=== PATIENT | female | born 1930 | race Caucasian/White ===

== ENCOUNTER 2017-02-15 08:30 | Emergency (ER) | payer MEDICARE, OTHER ==
[2017-02-15] MEDS ORDERED: NORMAL SALINE 1,000 ML IV ONE ×2 (09:08→11:48)
--- OUTSIDE RECORDS SUMMARY | 2017-02-15 09:15 | XMS REPORT | Continuity of Care Document ---
:1930 Author Organization [facility] ([facility]) Address [address] [place] [address] Phone [phone] Care Team Providers Name Role Phone Mandeep Lara Primary Care Provider [phone] Source Comments This disclosure is being made pursuant to the Care Everywhere program, applicable federal and state laws, and may not contain all informaitonavailable regarding this patient.[facility] ([facility]) Active Allergies and Adverse Reactions Allergen Noted Date Severity Reactions Comments Alprazolam 08/19/2015 Unknown Ciprofloxacin 06/28/2009 Urticaria (Hives) Irbesartan-Hydrochlorothiazide 07/18/2009 OTHER Cough Current Medications Prescription Sig. Disp. Refills Start Date End Date Status zolpiDEM (AMBIEN) 5 mg take 5 mg by Active tablet mouth at bedtime as needed for Sleep. amitriptyline (ELAVIL) take 75 mg by Active 75 mg tablet mouth every evening. MAGNESIUM HYDROXIDE, take by mouth. Active [id number], (MILK OF As needed MAGNESIA PO) CALCIUM Take 1 tablet by Active CARBONATE/VITAMIN D3 mouth daily. (CALCIUM 600 + D PO) Vitamin A-Vitamin C-Vit take 1 Tab by Active E-Min (OCUVITE) Tab mouth daily. multivitamin (MULTIPLE take 1 Tab by Active VITAMINS) tablet mouth every 48 hours. aspirin 81 mg EC tablet Take 81 mg by Active mouth 2 times daily. alendronate 70 mg Take 70 mg by Active tablet mouth every week. On Tuesdays FLUTICASONE 50 Use 1 [place] into 06/02/2015 Active mcg/Actuation nasal both nostrils spray daily as needed. LEVOTHYROXINE 100 mcg Take 100 mcg by 05/10/2015 Active tablet mouth daily. LOSARTAN-HYDROCHLOROTHI Take 1 tablet by 05/10/2015 Active AZIDE 100-25 mg per mouth daily. tablet METOPROLOL succinate 25 Take 25 mg by 05/10/2015 Active mg XL tablet mouth daily. SIMVASTATIN 40 mg Take 40 mg by 05/10/2015 Active tablet mouth every evening. acetaminophen 325 mg Take 2 tablets 90 tablet 0 10/05/2015 Active tablet (650 mg total) by mouth every 6 hours. Do not exceed 3000 mg daily lactulose 10 g/15 mL Take 15 mL (10 g 473 mL 1 10/12/2015 Active solution total) by mouth daily as needed. nitrofurantoin 06/14/2016 Active (MACROBID) 100 mg capsule Active Problems Problem Noted Date PONV (postoperative nausea and vomiting) 10/04/2015 Postoperative pain 10/04/2015 Overview: Monitor, treat with IV/PO pain meds prn Benign essential HTN 10/04/2015 Overview: Monitor, resume home meds as appropriate HLD (hyperlipidemia) 10/04/2015 Overview: Resume home meds as appropriate Hypothyroidism 10/04/2015 Overview: Resume home meds as appropriate Allergic rhinitis 10/04/2015 Overview: Resume home meds as appropriate Osteoporosis 10/04/2015 Overview: Resume home meds as appropriate Urinary retention 10/04/2015 Overview: Monitor, bladder scan q 6 hrs with CIC prn, replace omnteiro as appropriate Constipation 08/19/2015 Preop testing 08/19/2015 Macular hole of right eye 06/01/2013 Myopia 06/01/2013 Pseudophakia 06/05/2010 Retinal drusen 06/05/2010 Other screening mammogram 10/28/2002 Other constipation 10/28/2002 Insomnia, unspecified 12/16/2001 Chest pain, unspecified 12/16/2001 Migraine without aura, without mention of intractable migraine without 2000 mention of status migrainosus Unspecified tinnitus 06/17/2001 Resolved Problems Problem Noted Date Resolved Date Hypophosphatemia 10/06/2015 10/12/2015 Overview: Monitor, replete as appropriate Postoperative ileus 10/06/2015 10/12/2015 Overview: Monitor, NGT decompression prn, NPO Hypomagnesemia 10/05/2015 10/12/2015 Overview: Monitor, replete as appropriate Hyponatremia 10/05/2015 10/12/2015 Overview: Monitor, replete as appropriate Hypokalemia 10/05/2015 10/12/2015 Overview: Monitor, replete as appropriate Rectal prolapse 08/19/2015 10/12/2015 Overview: S/p Altemeier procedure 10/04/15 Immunizations Name Dates Previously Given Next Due Influenza, unspecified 07/08/2002,07/30/2000 Pneumococcal Polysaccharide, PPSV23 (Pneumovax 23) 02/08/2010 Pneumococcal, unspecified 11/25/1995 Td, adult unspecified 07/08/2002 Social History Tobacco Use Types Packs/Day Years Used Date Never Smoker Smokeless Tobacco: Never Used Tobacco Cessation:Counseling Given: Yes Comments: Alcohol Use Drinks/Week oz/Week Comments Yes 1 beer a day Last Filed Vital Signs Vital Sign Reading Time Taken Blood Pressure 113/67 10/19/2015 10:40 AM WORKFORCE MANAGEMENT COORDINATOR Pulse 93 10/19/2015 10:40 AM WORKFORCE MANAGEMENT COORDINATOR Temperature 36.9 C (98.4 F) 10/19/2015 10:40 AM WORKFORCE MANAGEMENT COORDINATOR Respiratory Rate 16 10/12/2015 9:28 AM WORKFORCE MANAGEMENT COORDINATOR Height 1.6 m (5' 2.99") 10/19/2015 10:40 AM WORKFORCE MANAGEMENT COORDINATOR Weight 64.05 kg (141 lb 3.3 oz) 10/19/2015 10:40 AM WORKFORCE MANAGEMENT COORDINATOR Body Mass Index 25.02 10/19/2015 10:40 AM WORKFORCE MANAGEMENT COORDINATOR Oxygen Saturation 93% 10/12/2015 8:00 AM WORKFORCE MANAGEMENT COORDINATOR Plan of Care Date Type Specialty Providers Description 06/24/2017 Appointment Ophthalmology - Chirag Hester, Chief Comp: Patient Specialty MD Reported Reason For [address] [place] [address] [phone] (Fax) Health Maintenance Due Date Last Done Comments Hepatitis B Vaccine (1 of 3 1930 - Primary Series) Tdap Vaccine 1941 Zoster Vaccine 1988 Lipid Disorder Screening 12/16/2006 12/16/2001, Additional history exists 11/24/1999, 12/06/1998 Pneumococcal Vaccine (2 of 2 02/08/2011 02/08/2010 - PCV13) Td Vaccine 07/08/2012 07/08/2002 Influenza Vaccine: Seasonal 04/16/2016 07/08/2002, (#1) 07/30/2000 Results from Last 3 Months Not on file
[2017-02-15 09:28] LABS: Hematocrit 34.9 % (37.0-47.0); Hemoglobin 11.8 gm/dL (12.5-16.0); Mean Cell Volume 86.6 fl (78-100); Mean Corpuscular Hemoglobin 29.3 pg (27-31); Mean Corpuscular Hgb Conc 33.8 g/dl (32-36); Mean Platelet Volume 8.6 fl (6.0-9.5); Neutrophil # 4.9 K/mm3 (1.3-6.0); Neutrophil % 85.4 % (42-75.0); Platelet Count 116 K/mm3 (150-450); Red Blood Count 4.03 M/mm3 (4.2-5.4); Red Cell Distribution Width 13.4 % (11.5-14.0); White Blood Count 5.7 K/mm3 (4.0-10.5)
[2017-02-15 09:43] LABS: Albumin * 3.6 gm/dl (3.4-5.0); Anion Gap 9.7 mmol/L (6.8-13.8); BUN/Creatinine Ratio 13.3 (9.0-21.6); Bilirubin, Total 1.1 mg/dL (0.0-1.1); Ca. Corrected For Albumin 9.2 mg/dL (8.4-10.2); Calcium * 9.2 mg/dL (7.9-10.9); Carbon Dioxide 29.1 mmol/L (24-32.6); Potassium 2.8 mmol/L (3.4-4.6); Total Protein 7.1 gm/dL (6.2-8.2)
[2017-02-15 10:06] LABS: Urine Bilirubin Negative (NEGATIVE); Urine Blood Negative /ul (NEGATIVE); Urine Ketone 5 mg/dL (NEGATIVE); Urine Nitrite Negative (NEGATIVE); Urine Protein Negative (NEGATIVE); Urine Specific Gravity <=1.005 SP.GR. (1.005-1.010); Urine Urobilinogen Normal (NORMAL)
[2017-02-15] MEDS ORDERED: POTASSIUM CHLORIDE 20 MEQ TABLET.SA PO ONE (10:07)
[2017-02-15] MEDS ORDERED: POTASSIUM CHLORIDE 100 ML IV ONE ×2 (10:07→10:08)
[2017-02-15 10:15] LABS: Urine Appearance Slightly Cloudy; Urine Bacteria 2+; Urine Color Yellow; Urine RBC None Seen /hpf (0-5)
[2017-02-15] MEDS ORDERED: POTASSIUM CHLORIDE 20 MEQ TABLET.SA ONE (10:25)
--- NOTE | 2017-02-15 13:17 | ERNOTE ---
Medical Problem HPI - General Chief Complaint: Nausea/Vomiting Time Seen by Provider: 02/15/17 09:01 Source: patient Exam Limitations: no limitations - Immun/Allergies/Home Medications Immunizations: IMMUNIZATION HX Immunizations Up to Date Yes History of Influenza Vaccine No Hx Pneumococcal Vaccination More Information Required Allergies/Adverse Reactions: Allergies alprazolam Allergy (Verified 02/15/17 08:53) ciprofloxacin [From Cipro] Allergy (Verified 02/15/17 08:53) ciprofloxacin HCl [From Cipro] Allergy (Verified 02/15/17 08:53) hydrochlorothiazide [From Avalide] Allergy (Verified 02/15/17 08:53) irbesartan [From Avalide] Allergy (Verified 02/15/17 08:53) Home Medications: HOME MEDICATIONS Amitriptyline HCl 75 mg PO HS 06/11/16 [Last Taken Unknown] Aspirin [Aspirin Chewable] 81 mg PO DAILY 06/11/16 [Last Taken Unknown] Levothyroxine Sodium [Synthroid] 100 mcg PO DAILY 06/11/16 [Last Taken Unknown] Losartan/Hydrochlorothiazide [Hyzaar 100-25 Tablet] 1 each PO DAILY 06/11/16 [ Last Taken Unknown] Magnesium Citrate 296 ml PO DAILY #2 solution 06/11/16 [Last Taken Unknown] Metoprolol Succinate 25 mg PO DAILY 06/11/16 [Last Taken Unknown] Simvastatin [Zocor] 20 mg PO HS 06/11/16 [Last Taken Unknown] Zolpidem Tartrate [Ambien] 5 mg PO HS 06/11/16 [Last Taken Unknown] Alendronate Sodium [Fosamax] 70 mg PO DAILY 02/15/17 [Last Taken Unknown] Beta-Carotene(A) W-C , E/Min [Ocuvite] 1 tab PO DAILY 02/15/17 [Last Taken Unknown] Calcium Carbonate [Calcium] 1,250 mg PO DAILY 02/15/17 [Last Taken Unknown] Fluticasone Propionate [Flovent Diskus] 50 mcg IH BID 02/15/17 [Last Taken Unknown] Loratadine 10 mg PO DAILY 02/15/17 [Last Taken Unknown] Multivitamin [One Daily Multivitamin] 1 each PO DAILY 02/15/17 [Last Taken Unknown] Nitrofurantoin/Nitrofuran Mac [Macrobid] 100 mg PO BID 02/15/17 [Last Taken Unknown] Sulfamethoxazole/Trimethoprim [Bactrim Ds] 1 tab PO BID #14 tab 02/15/17 [Last Taken Unknown] - History of Present History Narrative: She was recently diagnosed with urinary tract infection and placed on nitrofurantoin. Patient states every time she takes the nitrofurantoin she feels horrible she feels nauseated. The patient denies having vomited. Her dysuria has gotten better after 2 days of nitrofurantoin however she does not want to take it anymore. Had very poor oral intake in the past couple of days. Feels tired and weak. Review of Systems - Review of Systems Constitutional: Present: weakness, fatigue, malaise EYE: Present: no symptoms reported ENT: Present: no symptoms reported Respiratory: Present: no symptoms reported Cardiology: Present: no symptoms reported Gastrointestinal/Abdominal: Present: See HPI Genitourinary: Present: other - and states that she had some dysuria previous to being diagnosed with the urinary tract infection however after taking nitrofurantoin for 2 days the dysuria has since subsided. Musculoskeletal: Present: no symptoms reported Skin: Present: no symptoms reported Neurological: Present: no symptoms reported - Patient's Past Medical History Patient History - Medical: No pertinent hx Patient History - Cardiac/Respiratory: No pertinent hx Patient History - Cancer: No Hx of Cancer Patient History - Surgical Procedures: Colon Resection, Other LMP (females 10-50): Menopausal - Social History Living Situations: home Psych History: No pertinent hx Alcohol Use: rarely Drug Use: none - Immunizations Immunizations Up to Date: Yes Hx Pneumococcal Vaccination: More Information Required to Determine History of Influenza Vaccine: No Physical Exam - Physical Exam General Appearance: Present: wd/wn, alert, no apparent distress, other - appears pale and weak and lethargic Ears, Nose, Throat: Present: normal ENT inspection Neck: Present: normal inspection Respiratory: Present: no respiratory distress, normal breath sounds, no accessory muscle use, chest nontender, lungs clear Cardiovascular/Chest: Present: regular rate, rhythm, no murmur, normal peripheral pulses Gastrointestinal/Abdominal: Present: normal bowel sounds, nontender, nondistended, soft, no organomegaly Extremity Exam: Present: normal inspection, non-tender, normal range of motion, no edema Neurological Exam: Present: alert, oriented, normal mood/affect ED Progress - Results and Orders Patient's Lab Results:: I have reviewed the patient's lab results. - Vital Signs Patient's Vital Signs:: I have reviewed the patient's vital signs. Vital Signs: Vital Signs 02/15/17 02/15/17 02/15/17 08:42 10:14 10:56 Temperature 37.4 C Pulse Rate 76 111 H 88 Respiratory 14 12 14 Rate Blood Pressure 143/64 158/84 155/79 O2 Sat by Pulse 96 98 Oximetry 02/15/17 02/15/17 11:34 12:00 Temperature Pulse Rate 87 Respiratory Rate Blood Pressure 118/95 157/84 O2 Sat by Pulse 98 Oximetry - Progress/Reassessment Chief Complaint: Nausea/Vomiting Plan - Plan Plan: potassium was 2.8. Her Potassium was replaced with oral and K-riders. This convinced that the nitrofurantoin is not good for her at this time we will go ahead and stop the nitrofurantoin and put her on Bactrim. Departure - Departure Clinical Impression: Hypokalemia Urinary tract infection Qualifiers: Urinary tract infection type: site unspecified Hematuria presence: with hematuria Qualified Code(s): N39.0 - Urinary tract infection, site not specified ; R31.9 - Hematuria, unspecified Disposition: Home self-care Condition: Good Instructions: Dysuria Referrals: Mandeep Lara MD [Primary Care Provider] - Prescriptions: Sulfamethoxazole/Trimethoprim [Bactrim Ds] 1 tab PO BID #14 tab
[2017-02-15 13:27] VITALS: BP 150/85
== END 2017-02-15 13:36 | disposition home or self-care (01) ==
LOC: ER 08:30
DX: E87.6 Hypokalemia (principal); N39.0 Urinary tract infection, site not specified; R31.9 Hematuria, unspecified